=== PATIENT | male | born 1970 | race Caucasian/White ===

== ENCOUNTER 2021-05-25 11:51 | Day surgery (SDC) | payer BC ==
[2021-05-22 11:53] LABS: MICROSCOPIC AUTO
[~2021-05-25] VITALS: Ht 170.2 cm; Wt 112.5 kg
[~2021-05-25 11:51] MED LIST: ACETAMINOPHEN 325 MG TABLET PO PRN; BUPR300T49 PO; EPHEDRINE 50 MG/ML, 1ML IVPush PRN; FENTANYL PF 100 MCG/2ML IV PRN; HYDROmorphone 1 MG/ML, 1ML INJ IVPush PRN; LABETALOL 5MG/ML, 20ML IV PRN; ONDANSETRON 2MG/ML, 2ML IVPush PRN; OXYcodone 5 MG/5 ML ORAL.SOL UDC PO PRN; PROMETHAZINE 25 MG/ML, 1ML IVPush PRN; hydrALAzine 20 MG/ML, 1ML IV PRN
[2021-05-25] MEDS ORDERED: CHLORHEXIDINE 15 ML UDC PO ONE (13:00)
[2021-05-25] MEDS ORDERED: LACTATED RINGERS 1,000 ML IV SCH (13:00)
[2021-05-25] MEDS ORDERED: GEMCITABINE HCL 1,000 MG in SODIUM CHLORIDE 0.9% 23.7 ML IS ONE (15:00)
[2021-05-25] MEDS ORDERED: MIDAZOLAM 1 MG/ML, 2ML ONE (15:58)
[2021-05-25] MEDS ORDERED: FENTANYL PF 100 MCG/2ML ONE (15:58)
[2021-05-25] MEDS ORDERED: CEFAZOLIN 1,000 MG ONE (15:59)
[2021-05-25] MEDS ORDERED: ONDANSETRON 2MG/ML, 2ML ONE (15:59)
[2021-05-25] MEDS ORDERED: PROPOFOL 10 MG/ML, 20ML ONE (15:59)
[2021-05-25] MEDS ORDERED: DEXAMETHASONE 4 MG/ML, 1ML ONE (15:59)
[2021-05-25] MEDS ORDERED: OMNIPAQUE 350 MG/ML, 50 ML BOTTLE ONE (15:59)
[2021-05-25] MEDS ORDERED: SUCCINYLCHOLINE 20 MG/ML, 10ML ONE (15:59)
[2021-05-25] MEDS ORDERED: ROCURONIUM 10MG/ML,5ML ONE (15:59)
[2021-05-25] MEDS ORDERED: LIDOCAINE-MPF 2% ,5ML ONE (16:00)
[2021-05-25] MEDS ORDERED: SUGAMMADEX 200 MG/2 ML IVPush ONE (16:00)
[2021-05-25] MEDS ORDERED: SODIUM CHLORIDE 0.9% PF 10ML ONE (16:00)
[2021-05-25] MEDS ORDERED: PHENAZOPYRIDINE 200 MG TABLET ONE (17:21)
== END 2021-05-25 19:25 | disposition home or self-care (01) ==
LOC: OUT 11:51
PROVIDERS: ATTEND Urology
DX: D49.4 Neoplasm of unspecified behavior of bladder (principal); C67.4 Malignant neoplasm of posterior wall of bladder; F32.9 Major depressive disorder, single episode, unspecified; Z20.822 Contact with and (suspected) exposure to COVID-19; Z79.899 Other long term (current) drug therapy
CPT/HCPCS: 51720; 52235; 81001; 87086; 88307; C1769; J0330; J0690; J1100; J2250; J2405; J2704; J3010; J7120; J9201; U0003; U0005; Q9967